=== PATIENT | male | born 1990 | race Caucasian/White ===

== ENCOUNTER 2019-10-19 21:41 | Emergency (ER) | payer OTHER ==
[~2019-10-19] VITALS: Ht 167.6 cm; Wt 90.7 kg
[2019-10-19 21:45] VITALS: BP 125/55
--- NOTE | 2019-10-19 21:48 | NUR ---
TO LOBBY A/W BED AMBULATORY
--- NOTE | 2019-10-19 22:15 | NUR ---
29 Y/O MALE C/O RIGHT FOOT/ANKLE PAIN X 2 WEEKS. PT WENT TO URGENT CARE AND WAS TOLD IT WAS A SPRAIN AND TO JUST ELEVATE, ICE, REST THE AFFETCD FOOT. RIGHT FOOT SHOWS SWELLING, PALE/YELLOW COLOR, TENDERNESS TO TOUCH AND CAP REFILL < 3. VSS. A&O X4. USES CRUTCHES TO AMBULATE. RATES PAIN 6/10 AND DESCRIBES IT THROBBING. CMS INTACT ON BLE. NKA. NO PMH.
[2019-10-19] MEDS ORDERED: cefTRIAXone 1,000 MG in LIDOCAINE MPF 1% 2.1 ML IM ONE (22:35)
[2019-10-19] MEDS ORDERED: KETOROLAC 30 MG/ML VIAL IM ONE (22:35)
[2019-10-19] MEDS ORDERED: cefTRIAXone 1,000 MG VIAL ONE (22:36)
[2019-10-19] MEDS ORDERED: LIDOCAINE MPF 1% 5 ML ONE (22:37)
[2019-10-19 23:21] VITALS: BP 125/55
--- NOTE | 2019-10-19 23:21 | NUR ---
Patient discharged with v/s stable. Written and verbal after care instructions given and explained. Patient alert, oriented and verbalized understanding of instructions. Ambulatory with steady gait. All questions addressed prior to discharge. ID band removed. Patient advised to follow up with PMD. Rx of KEFLEX, IBUPROFEN, BACTRIM given. Patient educated on indication of medication including possible reaction and side effects. Opportunity to ask questions provided and answered.
== END 2019-10-19 23:21 | disposition home or self-care (01) ==
LOC: MED 21:41
DX: L03.115 Cellulitis of right lower limb (principal)
CPT/HCPCS: 73630; 96372; 99284; J0696; J1885; J2001

== ENCOUNTER 2019-10-27 00:04 | Inpatient (IN) | payer OTHER ==
[~2019-10-27] VITALS: Ht 167.6 cm; Wt 89.8 kg
[2019-10-27 00:10] VITALS: BP 121/63
[2019-10-27] MEDS ORDERED: AMPICILLIN/SULBACTAM 1.5 GM in NACL 0.9% 50 ML IV ONE (00:35)
[2019-10-27] MEDS ORDERED: NACL 0.9% 1,000 ML IV ONE (00:35)
[2019-10-27] MEDS ORDERED: AMPICILLIN/SULBACTAM 1.5 GM VIAL ONE (00:51)
[2019-10-27 00:53] LABS: BASOPHILS # (AUTO) 0.1 K/uL (0.00-0.22); BASOPHILS % (AUTO) 1.4 % (0.0-2.0); EOSINOPHILS # (AUTO) 0.2 K/uL (0-0.4); EOSINOPHILS % (AUTO) 3.3 % (0.0-4.0); HEMATOCRIT 45.9 % (36-52); HEMOGLOBIN 15.5 g/dL (12.0-18.0); LYMPHOCYTES # (AUTO) 1.7 K/uL (2.0-11.5); LYMPHOCYTES % (AUTO) 29.2 % (20.5-51.1); MEAN CORPUSCULAR HEMOGLOBIN 30 pg (27-31); MEAN CORPUSCULAR HGB CONC 34 g/dL (33-37); MEAN CORPUSCULAR VOLUME 88.8 fL (80-94); MONOCYTES # (AUTO) 0.5 K/uL (0.8-1.0); NEUTROPHILS # (AUTO) 3.5 K/uL (1.8-7.7); NEUTROPHILS % (AUTO) 58.1 % (42.2-75.2); PLATELET COUNT (AUTO) 327 K/uL (140-450); RED BLOOD CELL COUNT(AUTO) 5.17 MIL/uL (4.20-6.10); RED CELL DISTRIBUTION WIDTH 13.3 % (11.6-13.7)
[2019-10-27 01:11] LABS: ALBUMIN 4.3 g/dL (3.4-5.0); ANION GAP 13.7 (8-16); CARBON DIOXIDE 29.1 mmol/L (21-32); CREATININE 1.1 mg/dL (0.6-1.3); POTASSIUM 3.8 mmol/L (3.5-5.1); PROTHROMBIN TIME 10.2 secs (10.8-13.4); TOTAL BILIRUBIN 0.5 mg/dL (0.0-1.0)
[2019-10-27] MEDS ORDERED: NACL 0.9% 1,000 ML IV SCH (02:07)
[2019-10-27] MEDS ORDERED: DOCUSATE SODIUM 100 MG GELCAP PO PRN (02:10)
[2019-10-27] MEDS ORDERED: ONDANSETRON 4 MG/2 ML VIAL IM/IVP PRN (02:10)
[2019-10-27] MEDS ORDERED: ACETAMINOPHEN 325 MG TAB PO PRN (02:10)
[2019-10-27 02:24] LABS: APPEARANCE,URINE CLEAR (CLEAR); BILIRUBIN,URINE NEGATIVE (NEGATIVE); BLOOD, URINE NEGATIVE (NEGATIVE); COLOR,URINE YELLOW (YELLOW); LEUKOCYTE ESTERASE ,URINE TRACE (NEGATIVE); NITRITE, URINE NEGATIVE (NEGATIVE); PH,URINE 6.5 (5.0-9.0); UGLUCOSE NEGATIVE (NEGATIVE)
[2019-10-27] MEDS ORDERED: VANCOMYCIN PER PHARMACY MC PRN (02:35)
[2019-10-27 02:40] VITALS: BP 138/67
[2019-10-27 02:53] LABS: FREE T4 (FREE THYROXINE) 1.18 ng/dL (0.76-1.46); PHOSPHORUS 3.6 mg/dL (2.5-4.9); THYROID STIMULATING HORMONE 2.1 uIU/mL (0.34-3.74)
[2019-10-27] MEDS ORDERED: DEXT 5% / NACL 0.9% 500 ML IV SCH (03:00)
[2019-10-27 03:11] LABS: RBC,URINE 0-5 /HPF (0-5); URINE AMORPHOUS URATE 1+ /HPF (None Seen); WBC,URINE 0-5 /HPF (0-5)
[2019-10-27 03:55] LABS: BARBITURATE, URINE NEGATIVE ng/ml (NEG <=200); BENZODIAZEPINE, URINE NEGATIVE ng/mL (NEG <=200); CANNABINOID, URINE NEGATIVE ng/mL (NEG <=50); COCAINE, URINE NEGATIVE ng/mL (NEG <=300); OPIATE, URINE NEGATIVE ng/mL (NEG <=2000); PHENCYCLIDINE SCREEN,URINE NEGATIVE ng/mL (NEG <=25)
[2019-10-27] MEDS ORDERED: VANCOMYCIN HCL 1,750 MG in NACL 0.9% 500 ML IV SCH (03:55)
[2019-10-27] MEDS ORDERED: VANCOMYCIN 500 MG VIAL ONE (04:14)
[2019-10-27] MEDS ORDERED: VANCOMYCIN 1,000 MG VIAL ONE (04:14)
[2019-10-27 06:23] LABS: CHOL/HDL RATIO 4.2 (1-4.5)
[2019-10-27] MEDS ORDERED: PIPERACILLIN/TAZOBACTAM 3.375 GM VIAL IV ONE (06:28)
[2019-10-27] MEDS: PIPERACILLIN/TAZOBACTAM 3.375 GM in DEXTROSE 5% 50 ML IV SCH ×3 (06:38→18:12)
[2019-10-27 08:00] VITALS: BP 122/69
[2019-10-27] MEDS: DEXT 5% /NACL 0.9% 1,000 ML IV SCH ×2 (08:29→16:22)
[2019-10-27] MEDS: LACTOBACILLUS RHAMNOSUS GG 1 EACH CAP PO SCH (08:42)
[2019-10-27 16:00] VITALS: BP 101/57
[2019-10-27] MEDS ORDERED: VANCOMYCIN 1,000 MG in DEXTROSE 5% 250 ML IV SCH (17:00)
[2019-10-28] VITALS: BP 124/60
[2019-10-28] MEDS: PIPERACILLIN/TAZOBACTAM 3.375 GM in DEXTROSE 5% 50 ML IV SCH ×2 (02:29→06:52)
[2019-10-28] MEDS: DEXT 5% /NACL 0.9% 1,000 ML IV SCH ×2 (03:17→04:29)
[2019-10-28 05:54] LABS: BASOPHILS % (AUTO) 0.7 % (0.0-2.0); EOSINOPHILS # (AUTO) 0.2 K/uL (0-0.4); EOSINOPHILS % (AUTO) 3.7 % (0.0-4.0); HEMOGLOBIN 13.5 g/dL (12.0-18.0); LYMPHOCYTES # (AUTO) 2.2 K/uL (2.0-11.5); LYMPHOCYTES % (AUTO) 32.4 % (20.5-51.1); MEAN CORPUSCULAR HEMOGLOBIN 30 pg (27-31); MEAN CORPUSCULAR HGB CONC 34 g/dL (33-37); MEAN CORPUSCULAR VOLUME 88.2 fL (80-94); MONOCYTES # (AUTO) 0.6 K/uL (0.8-1.0); MONOCYTES % (AUTO) 9.5 % (1.7-9.3); NEUTROPHILS # (AUTO) 3.6 K/uL (1.8-7.7); NEUTROPHILS % (AUTO) 53.7 % (42.2-75.2); PLATELET COUNT (AUTO) 294 K/uL (140-450); RED BLOOD CELL COUNT(AUTO) 4.54 MIL/uL (4.20-6.10); RED CELL DISTRIBUTION WIDTH 13.4 % (11.6-13.7); WHITE BLOOD COUNT (AUTO) 6.7 K/uL (4.8-10.8)
[2019-10-28 06:31] LABS: ANION GAP 10.2 (8-16); CARBON DIOXIDE 29.6 mmol/L (21-32); POTASSIUM 3.8 mmol/L (3.5-5.1)
[2019-10-28] MEDS: LACTOBACILLUS RHAMNOSUS GG 1 EACH CAP PO SCH (08:23)
[2019-10-28 10:14] VITALS: BP 123/70
== END 2019-10-28 14:24 | disposition home or self-care (01) | DRG 563 ==
LOC: MED 00:04 → MMU 02:10
PROVIDERS: ADMIT General Practice; ATTEND General Practice
DX: S93.401A Sprain of unspecified ligament of right ankle, initial encounter (principal); E66.9 Obesity, unspecified; W18.39XA Other fall on same level, initial encounter; Z68.32 Body mass index [BMI] 32.0-32.9, adult; Y93.89 Activity, other specified; Y92.89 Other specified places as the place of occurrence of the external cause; Y99.8 Other external cause status
CPT/HCPCS: 36415; 71045; 73600; 76881; 80048; 80053; 80305; 81001; 82150; 83036; 83605; 83690; 83735; 83880; 84100; 84134; 84439; 84443; 84484; 85025; 85610; 85651; 85730; 86140; 87040; 87070; 87081; 87086; 87186; 93925; 93970; 96361; 96365; 97116; 97161-GP; 97530; 99285; J0295; J1644; J2543; J3370; J7030; J7042; J7060; Q0092